=== PATIENT | male | born 1955 | race Caucasian/White ===

== ENCOUNTER 2016-08-31 14:19 | Inpatient (IN) ==
[2016-08-31] MEDS ORDERED: SODIUM CHLORIDE 0.9% 1,000 ML IV STA (15:03)
[2016-08-31] MEDS ORDERED: PANTOPRAZOLE 40 MG VIAL IV STA (15:03)
[2016-08-31] MEDS ORDERED: ONDANSETRON 4 MG/2 ML VIAL IV STA (15:03)
[2016-08-31] MEDS ORDERED: HYDROmorphone 2 MG/1 ML VIAL IV STA (15:03)
[2016-08-31 15:10] LABS: Basophils # 0.1 10*3/uL (0.0-0.2); Basophils % 0.3 % (0.0-0.8); Eosinophils # 0.1 10*3/uL (0.0-0.87); Eosinophils % 0.3 % (0.00-10.9); Hematocrit 49.8 VOL% (42.0-52.0); Hemoglobin 16.6 GM/DL (14.0-18.0); Immature Granulocytes % 0.6 %; Lymphocytes # 0.2 10*3/uL (1.4-4.0); Mean Corpuscular HGB Conc 33.3 GM/DL (32-36); Mean Corpuscular Hemoglobin 29 PG (27-34); Mean Corpuscular Volume 87.2 FL (87-102); Mean Platelet Volume 10.6 FL (9.6-12.0); Monocytes # 1.3 10*3/uL (0.11-0.8); Monocytes % 7.5 % (1.7-12.7); Neutrophils # 15.9 10*3/uL (1.4-7.4); Neutrophils % 90.3 % (38.7-73.9); Platelet Count 411 T/CUMM (130-400); Red Blood Count 5.71 MC/CUMM (3.8-5.5); White Blood Count 17.6 T/CUMM (4-12)
--- NOTE | 2016-08-31 15:25 | CT Report ---
Referring physician: Evin Quarles Exam: CT brain without contrast Date: 08/31/2016 Comparison: None Reason: Headache Technique: Axial images of the head were obtained without the use of contrast. Total DLP was 1225.60 mGy*cm. Findings: No hydrocephalus or midline shift is present. There is no evidence of an acute infarction, recent intracranial hemorrhage or abnormal mass effect. Minimal cerebral atrophy. The osseous structures appear intact. The mastoid air cells are clear. Air-fluid level in the left sphenoid sinus which measures 5 mm in depth. Impression: No acute intracranial abnormality is identified. Minimal atrophy. Minimal left sphenoid sinusitis. The CT exam was performed using one or more of the following dose reduction techniques: Automated exposure control and adjustment of the mA and/or kV according to patient size. PROCEDURE INTERPRETED AT [facility] DEPARTMENT OF RADIOLOGY Final Report Signed by: Dr. Britt Grier
[2016-08-31 15:28] LABS: Lymphocytes 2 % (20-55); Platelet Estimate Adequate; Segmented Neutrophils 91 % (50-85); Total Cells Counted 100
[2016-08-31 15:29] LABS: Poikilocytosis Slight
--- NOTE | 2016-08-31 15:39 | XRay Report ---
XR abdomen 2V Indication: Abdominal pain. Comparison: None. Technique: Flat and erect images of the abdomen were performed. Findings: Lung bases are clear. No organomegaly suggested. The bowel gas pattern demonstrates no specific abnormality. A few air-fluid levels are noted within nondilated air-filled loops of central small bowel. Bony structures as well as soft tissues demonstrate no evidence of significant pathology. Calcified gallstone is suggested within the right upper abdomen. Impression: 1. Nonspecific bowel gas pattern could reflect evidence of enteritis. 2. Calcified gallstone right upper abdomen is suggested. 08/31/2016 3:36 PM PROCEDURE INTERPRETED AT [facility] DEPARTMENT OF RADIOLOGY Final Report Signed by: Dr. Kenneth Whiting
--- NOTE | 2016-08-31 15:39 | XRay Report ---
XR chest 1V portable Indication: Abdominal pain. Comparison: None. Technique: Portable AP chest was performed. Findings: Heart size, mediastinal contour, and hilar structures demonstrate no evidence of acute pathology. Lungs are clear. Bones and soft tissues demonstrate no evidence of acute pathology. Impression: 1. No evidence of acute pathology. 08/31/2016 3:36 PM PROCEDURE INTERPRETED AT [facility] DEPARTMENT OF RADIOLOGY Final Report Signed by: Dr. Kenneth Whiting
[2016-08-31 16:22] LABS: Alanine Aminotransferase 20 U/L (16-61); Alkaline Phosphatase 90 U/L (45-117); Amylase 89 U/L (25-115); Aspartate Amino Transferase 12 U/L (0-37); Blood Urea Nitrogen 16 MG/DL (7-18); Calcium 9.1 MG/DL (8.5-10.1); Glucose 178 MG/DL (74-106); Magnesium 1.9 MG/DL (1.8-2.4); Osmolality,Calculated 281.5 MOS/KG (273-304); Potassium 4.9 MMOL/L (3.5-5.1); Sodium 139 MMOL/L (136-145); Total Protein 8.1 G/DL (6.4-8.3); Troponin I Only < 0.015 NG/ML (0.00-0.045)
--- NOTE | 2016-08-31 16:41 | Emergency Department Note ---
Verito Roche Hilary, am scribing for, and in the presence of, Evin Quarles MD 15:09. Willam Roche Charles R, MD, personally performed the services described in this documentation, ascribed by Lore Sellers in my presence, and it is both accurate and complete 640 . Arrival - Arrival Chief Complaint: Nausea/Vomiting/Diarrhea Stated Complaint: vomiting,diarrhea,diabitic w/ ileostomy J pouch ED Nursing Triage Note: Pt c/o nausea, vomiting, and diarrhea started this am. Mode of Arrival: Ambulatory Limitations: No Limitations Source: Patient, Significant other (), RN Notes Reviewed Time Seen by Provider: 08/31/16 14:33 - History of Present Illness HPI Narrative: Pt is a 60 y/o male presenting to the ED with c/o N/V/D and DONIS which onset this morning. Pt has 8ft total of all intestines due to surgeries. Pt states that he has gone to the bathroom at least 8 times this morning and confirms N/V/D, DONIS, and Abdominal tenderness. Pt has a PMHx of HTN, IDDM, Ulcerative Colitis, and Illiostomy and J Pouch. Onset (ago): hour(s) Allergies/Adverse Reactions: Allergies Allergy/AdvReac Type Severity Reaction Status Date / Time Unable to Obtain Allergy Unverified 08/31/16 14:26 Home Medications: Home Medications Medication Instructions Recorded Confirmed Type Ciprofloxacin Tab [Cipro Tab] 250 mg PO DAILY 08/31/16 08/31/16 History Insulin Glargine [Lantus] 40 unit SUBCUT DAILY 08/31/16 08/31/16 History Mercaptopurine 50 mg PO DAILY 08/31/16 08/31/16 History metroNIDAZOLE TAB [Flagyl Cap/Tab] 500 mg PO DAILY 08/31/16 08/31/16 History Review of System - Review of System 12 point system: reviewed and no additional remarkable complaints except as stated - Review of System Constitutional: Absent: fever Gastrointestinal: Present: abdominal pain, nausea, vomiting, diarrhea Neurological: Present: headache Medical,Surgical,& Family Hx - Medical History Cardio: History of: Hypertension Endocrine: History of: Diabetes Mellitus (IDDM) Gastrointestinal: History of: Ulcerative Colitis - Surgical History Abdominal Surgeries: Surgical HX of: Abdominal Surgery (Illiostomy and J Pouch) - Social History Smoking Status: Never smoker Exam Vital Signs: Vital Signs Temperature 97.3 F L 08/31/16 14:20 Pulse Rate 118 H 08/31/16 14:20 Respiratory Rate 20 08/31/16 14:20 Blood Pressure 83/61 08/31/16 14:20 O2 Sat by Pulse Oximetry 96 08/31/16 14:20 - General General appearance: alert, in no apparent distress, other (Sickly looking) - Head Head exam: Present: atraumatic, normocephalic - Eye Eye exam: Present: normal appearance, PERRL, EOMI - ENT ENT exam: Present: mucous membranes dry, TM's normal bilaterally - Neck Neck exam: Present: full ROM, trachea midline. Absent: tenderness - Chest Chest inspection: Present: symmetric chest wall rise. Absent: tenderness - Respiratory Respiratory exam: Present: normal lung sounds bilaterally - Cardiovascular Cardiovascular exam: Present: normal rhythm, tachycardia - Abdominal Exam Abdominal exam: Present: distention, tenderness (abdominal area), hyperactive bowel sounds - Extremities Exam Extremities exam: Present: full ROM. Absent: tenderness - Back Exam Back exam: Present: full ROM. Absent: tenderness - Neurological Exam Neurological exam: Present: alert, oriented X3, CN II-XII intact. Absent: motor sensory deficit - Psychiatric Psychiatric exam: Present: normal affect, normal mood - Skin Skin exam: Present: warm, dry, intact, pallor Course - Consultations Consultation #1: Dr. Barrera will admit patient Time: 17:29 Results - Labs CBC & BMP: 08/31/16 14:50 08/31/16 15:45 Lab Results: I have reviewed the patients labs Labs: Laboratory Tests 08/31/16 14:48 POC Glucose 195 H Laboratory Tests 08/31/16 14:50 WBC 17.6 H RBC 5.71 H Plt Count 411 H Neut % (Auto) 90.3 H Lymph % (Auto) 1.0 L Neut # (Auto) 15.9 H Lymph # (Auto) 0.2 L Dunn # (Auto) 1.3 H Laboratory Tests 08/31/16 15:45 Creatinine 1.80 H Glucose 178 H Total Bilirubin 2.60 H Globulin 4.1 H Albumin/Globulin Ratio 0.9 L - Diagnostic Findings Procedure: Abdominal x-ray: report reviewed by me (1. Nonspecific bowel gas pattern could reflect evidence of enteritis. 2. Calcified gallstone right upper abdomen is suggested. ), Chest x-ray: report reviewed by me (1. No evidence of acute pathology.), CT: report reviewed by me (Head: No acute intracranial abnormality is identified. Minimal atrophy. Minimal left sphenoid sinusitis.), Ultrasound: report reviewed by me (Gallbladder: Cholelithiasis. Large gallstone in the neck of gallbladder. The wall of the gallbladder appears to be borderline in thickness. CBD is borderline in size measuring 6.2 mm. Biliary scan with ejection fraction may be helpful for further evaluation. Pancreas and aorta are obscured by bowel gas.) Critical Care Time Critical Care Time: Yes Total Critical Care Time: 60 Disposition Clinical Impression: Gastroenteritis, Dehydration, Sepsis, Cholelithiasis, Abdominal pain, Leukocytosis, Hypotension Case discussed with: patient, patient's family Disposition: Still a Patient Condition: Guarded Time of Disposition: 17:31
--- NOTE | 2016-08-31 16:48 | Ultrasound Report ---
Exam: US gallbladder Date: 08/31/2016 4:06 PM Comparison: None Indication: Nausea, vomiting, diarrhea Technique:[Multiple transabdominal real-time scans were obtained of the right upper quadrant. Color flow scans obtained. Ultrasound images were captured and stored.] Findings: 19 mm gallstone in the neck of the gallbladder. The wall of the gallbladder measures 2.9 mm. CBD measures 6.2 mm. The liver is normal in size with no masses. Right kidney measures 2 mm length with no masses or hydronephrosis. The pancreas, aorta including the aortic bifurcation, and IVC are obscured by bowel gas. Color flow documented in the IVC. Impression: Cholelithiasis. Large gallstone in the neck of gallbladder. The wall of the gallbladder appears to be borderline in thickness. CBD is borderline in size measuring 6.2 mm. Biliary scan with ejection fraction may be helpful for further evaluation. Pancreas and aorta are obscured by bowel gas. PROCEDURE INTERPRETED AT [facility] DEPARTMENT OF RADIOLOGY Final Report Signed by: Dr. Britt Grier
--- NOTE | 2016-08-31 17:02 | EKG Report ---
Stationary ECG Study [facility] ER Test Date: 08/31/2016 5:01:20 PM Pat Name: EMILY BUNDY Department: Room: Gender: M Java Developer Architect: : [id number] Requested by: Evin Neil Order Number: [id number] Reading MD: ANEL MONTILLA Intervals Salley Rate: 103 P: 70 RI: 169 QRS: 106 QRSD: 109 T: 29 QT: 337 QTc: 397 Interpretive Statements SINUS TACHYCARDIA MARKED RIGHT AXIS DEVIATION POSSIBLE INFERIOR MYOCARDIAL INFARCTION, PROBABLY OLD Electronically Signed On 09-06-16 07:45:35 CDT by ANEL MONTILLA [email or web address]
[2016-08-31] MEDS ORDERED: SODIUM CHLORIDE 0.9% 500 ML IV STA (17:10)
[2016-08-31] MEDS ORDERED: PANTOPRAZOLE 40 MG VIAL IV ONE (17:11)
[2016-08-31] MEDS ORDERED: ONDANSETRON 4 MG/2 ML VIAL ONE (17:11)
[2016-08-31] MEDS ORDERED: HYDROmorphone 2 MG/1 ML VIAL ONE (17:12)
[2016-08-31] MEDS ORDERED: GLUCAGON 1 MG VIAL IM PRN (18:03)
[2016-08-31] MEDS ORDERED: DEXTROSE 50% 25 GM/50 ML VIAL IV PRN (18:03)
[2016-08-31] MEDS ORDERED: CIPROFLOXACIN INJ 400 MG in PREMIX 1 EACH IV SCH (18:03)
[2016-08-31] MEDS ORDERED: HYDROmorphone 2 MG/1 ML VIAL IV PRN (18:03)
[2016-08-31] MEDS ORDERED: metroNIDAZOLE INJ 500 MG in PREMIX 1 EACH IV SCH (18:03)
[2016-08-31] MEDS ORDERED: SODIUM CHLORIDE 0.9% 1,000 ML IV SCH (18:03)
[2016-08-31] MEDS ORDERED: PIPERACILLIN/TAZOBACTAM 3,375 MG in SODIUM CHLORIDE 0.9% 100 ML IV SCH (18:03)
[2016-08-31] MEDS ORDERED: ACETAMINOPHEN 325 MG TABLET PO PRN ×2 (18:03→18:19)
[2016-08-31] MEDS ORDERED: ONDANSETRON 4 MG/2 ML VIAL IV PRN ×2 (18:03→18:19)
--- NOTE | 2016-08-31 18:13 | General Surg History&Physical ---
Assessment and Plan (1) Cholelithiasis Status: Acute Assessment and plan: This patient has cholelithiasis and he appears to have a component of cholecystitis with elevated white count and focal tenderness in the right upper quadrant. He also has a slightly prominent bile duct and his bilirubin is elevated. I have discussed his care with Dr. Arambula who agreed to see him here and I think the best course of action would be to aggressively resuscitate him overnight in the intensive care unit prior to any procedures to make these procedures more safe. He is still volume depleted and he needs to be resuscitated prior to any of these sort of procedures. He will be placed on IV antibiotics Zosyn and Flagyl and admitted to the ICU with an additional liter of lactated Ringer's tonight and he will be placed at a rate of 175 cc an hour overnight. If we cannot get good control surely he will need to have a Roblero catheter placed as well. I have asked Dr. Arambula to see him for an ERCP due to his elevated bilirubin and prominent bile duct prior to cholecystectomy. I believe his acute presentation is most likely secondary to his cholecystitis that developing but is certainly a component of pouchitis and enteritis is also possible and will get Dr. Arambula to see about any further recommendations regarding this as well. We will plan for interval cholecystectomy after ERCP is done and watch him closely in ICU overnight. I did offer to transfer the patient to [facility] but the patient and his sister prefer to receive this care here if possible and I think we can comfortably handle his gallbladder here at this institution. Current Visit: Yes History of Present Illness Chief complaint: Abdominal pain with nausea, vomiting, and diarrhea History of present illness: Mr. Olivarez is a 60 year old male with a history of ulcerative colitis who underwent a total abdominal colectomy with J-pouch ilio anal anastomosis and diverting loop ileostomy followed by ileostomy closure in the year 1999 at [facility] who is presenting to the ER today with acute onset of abdominal pain mostly focused in the right upper quadrant with nausea and vomiting and diarrhea today. The patient has a history of chronic pouchitis and he takes ciprofloxacin, Flagyl, and mercaptopurine daily. He has been on this regimen for many years now. He is followed by Dr. Saavedra at [facility] and Dr. blankenship sees him here in [place] for any local issues he has. He was recently in contact with his sister who developed a gastrointestinal bug over the weekend and he thought this was passed on to him. He has no fevers at home. He was evaluated in the ER with lab work to reveal leukocytosis of 17,600. His creatinine had bumped to 1.8. His bilirubin was 2.6. His other LFTs were normal and his lipase was normal. Abdominal x-ray showed nonspecific bowel gas pattern. Ultrasound of the right upper quadrant showed borderline gallbladder wall thickening with a 2 cm stone lodged in the neck of the gallbladder that was immobile. There was a bile duct size of 6.2 mm. Home Medications Medication Instructions Recorded Confirmed Type Ciprofloxacin Tab [Cipro Tab] 250 mg PO DAILY 08/31/16 08/31/16 History Insulin Glargine [Lantus] 40 unit SUBCUT DAILY 08/31/16 08/31/16 History Mercaptopurine 50 mg PO DAILY 08/31/16 08/31/16 History metroNIDAZOLE TAB [Flagyl Cap/Tab] 500 mg PO DAILY 08/31/16 08/31/16 History Allergies Allergy/AdvReac Type Severity Reaction Status Date / Time levofloxacin [From Levaquin] Allergy ANAPHYLAXIS Verified 08/31/16 17:50 Medical,Surgical,& Family Hx - Medical History Cardio: History of: Hypertension Endocrine: History of: Diabetes Mellitus (IDDM) Gastrointestinal: History of: Ulcerative Colitis - Surgical History Abdominal Surgeries: Surgical HX of: Abdominal Surgery (Illiostomy and J Pouch) - Social History Smoking Status: Never smoker Exam - Constitutional General appearance: no acute distress, over weight - Head Head exam: Present: normal inspection, normocephalic - Eye Eye exam: Present: EOMI. Absent: scleral icterus Pupils: Present: KITTY - ENT ENT exam: Present: normal exam Mouth exam: Present: normal external inspection, normal voice - Neck Neck exam: Present: normal inspection, trachea midline - Respiratory Respiratory exam: Present: clear to auscultation bilaterally. Absent: accessory muscle use, chest wall tenderness - Cardiovascular Cardiovascular exam: Present: RRR. Absent: systolic murmur, tachycardia - GI/Abdominal GI/Abdominal exam: Present: normal bowel sounds, tenderness, soft. Absent: firm , guarding, Rubio's sign, organomegaly, rebound - Extremities Exam Extremities exam: Present: normal inspection, normal capillary refill - Back Exam Back exam: Present: normal inspection - Neurological Exam Neurological exam: Present: alert, oriented X3 Speech: Present: normal - Skin Skin exam: Present: normal color, warm - Constitutional Constitutional: Present: as per HPI - EENT Nose, mouth and throat: Present: as per HPI - Cardiovascular Cardiovascular: Present: as per HPI - Respiratory Respiratory: Present: as per HPI - Gastrointestinal Gastrointestinal: Present: as per HPI - Genitourinary Genitourinary: Present: as per HPI - Musculoskeletal Musculoskeletal: Present: as per HPI - Neurological Neurological: Present: as per HPI - Endocrine Endocrine: Present: as per HPI Hematologic/Lymphatic: Present: as per HPI Results - Labs CBC & BMP: 08/31/16 14:50 08/31/16 15:45 - Diagnostic Findings Procedure: KUB x-ray: report reviewed by me, image reviewed by me (Enteritis), Ultrasound: image reviewed by me, report reviewed by me (There is a 2 cm stone in the neck of the gallbladder that is immobile and there is some borderline wall thickening in the gallbladder.)
[2016-08-31 18:19] LABS: Apearance,Urine CLOUDY (Clear); Bacteria,Urine Few /HPF (Few); Bilirubin,Urine Negative (Negative); Blood, Urine Negative (Negative); Glucose,Urine (UA) 50 mg/dL (Negative); Hyaline Casts,Urine 118 /LPF (0-3); Ketones,Urine 5 mg/dL (Negative); Mucus,Urine Many /LPF (Occasional); Nitrite,Urine Negative (Negative); Protein,Urine >=500 MG/DL; RBC,Urine 5 /HPF (0-4); Squamous Epithelial Cell,Urine Occasional /HPF (0-10); Urine Color Amber (Yellow); Urine Specific Gravity 1.024 (1.001-1.035); Urine Urobilinogen < 2.0 EU/DL (0.2-1.0); WBC,Urine 9 /HPF (0-6)
[2016-08-31] MEDS ORDERED: LACTATED RINGERS 1,000 ML IV ONE (18:19)
[2016-08-31] MEDS ORDERED: PROMETHAZINE 25 MG/1 ML VIAL IM PRN (18:19)
[2016-08-31] MEDS ORDERED: PIPERACILLIN/TAZOBACTAM 3,375 MG in SODIUM CHLORIDE 0.9% 100 ML IV ONE (18:19)
[2016-08-31] MEDS: PIPERACILLIN/TAZOBACTAM 3,375 MG in SODIUM CHLORIDE 0.9% 100 ML IV SCH (20:11)
[2016-08-31] MEDS: LACTATED RINGERS 1,000 ML IV SCH (20:56)
[2016-08-31] MEDS ORDERED: INSULIN REGULAR 100 UNIT/ML SUBCUT SCH (21:00)
[2016-08-31] MEDS: HYDROmorphone 2 MG/1 ML VIAL IV PRN (22:20)
[2016-09-01] MEDS: metroNIDAZOLE INJ 500 MG in PREMIX 1 EACH IV SCH ×3 (00:24→16:09)
[2016-09-01] MEDS: LACTATED RINGERS 1,000 ML IV SCH ×4 (02:01→20:07)
[2016-09-01] MEDS: PIPERACILLIN/TAZOBACTAM 3,375 MG in SODIUM CHLORIDE 0.9% 100 ML IV SCH ×3 (04:41→20:09)
[2016-09-01 04:47] LABS: Basophils % 0.5 % (0.0-0.8); Eosinophils # 0.1 10*3/uL (0.0-0.87); Eosinophils % 0.8 % (0.00-10.9); Hematocrit 39.9 VOL% (42.0-52.0); Hemoglobin 13.3 GM/DL (14.0-18.0); Immature Granulocytes % 0.4 %; Immature Granulocytes Absolute 0.03 #; Lymphocytes # 0.3 10*3/uL (1.4-4.0); Lymphocytes % 3.7 % (21.2-54.2); Mean Corpuscular HGB Conc 33.3 GM/DL (32-36); Mean Corpuscular Hemoglobin 29 PG (27-34); Mean Corpuscular Volume 86.6 FL (87-102); Mean Platelet Volume 10.1 FL (9.6-12.0); Monocytes # 0.9 10*3/uL (0.11-0.8); Monocytes % 11.9 % (1.7-12.7); Neutrophils # 6.5 10*3/uL (1.4-7.4); Neutrophils % 82.7 % (38.7-73.9); Platelet Count 289 T/CUMM (130-400); Red Blood Count 4.61 MC/CUMM (3.8-5.5); White Blood Count 7.8 T/CUMM (4-12)
[2016-09-01 05:12] LABS: Bilirubin,Direct 0.4 MG/DL (0.0-0.20)
[2016-09-01 05:13] LABS: Eosinophils 1 % (0-10); Hypochromasia 1+; Lymphocytes 4 % (20-55); Segmented Neutrophils 85 % (50-85); Total Cells Counted 100
[2016-09-01 05:14] LABS: Microcytosis 1+; Platelet Estimate Adequate
[2016-09-01 06:10] LABS: Albumin 3.2 G/DL (3.4-5.0); Bilirubin,Total 2.5 MG/DL (0.2-1.0); Calcium 7.9 MG/DL (8.5-10.1); Magnesium 1.7 MG/DL (1.8-2.4); Osmolality,Calculated 277.8 MOS/KG (273-304); Potassium 4.4 MMOL/L (3.5-5.1); Total Protein 6.6 G/DL (6.4-8.3)
[2016-09-01] MEDS ORDERED: LACTATED RINGERS 1,000 ML IV ONE (07:08)
--- NOTE | 2016-09-01 07:33 | General Surgery Progress Note ---
Assessment and Plan (1) Cholelithiasis Status: Acute Assessment and plan: The patient needs continued resuscitation. He will be given an additional liter now we will continue to check bladder scans. His creatinine has gone up slightly but I think his resuscitation is nearing its completion based on his vital signs. I have discussed his care with Dr. Arambula who agreed to see him during his hospitalization and perform ERCP prior to his operation. He will continue antibiotics in the meantime we get a pharmacy consult for dosing. Current Visit: Yes Subjective Patient reports: Present: no new complaints, feels better, still having pain, pain is less, afebrile Narrative: The patient had decreased urine output overnight. His pain is much better. Exam - Constitutional Vitals: Period Temp Pulse Resp BP Sys/Jackson Pulse Ox Last 24 Hr 97.7 F-99.1 F 71-101 12-27 99-129/45-77 91-100 General appearance: no acute distress, over weight - Head Head exam: Present: normal inspection, normocephalic - Eye Eye exam: Present: EOMI Pupils: Present: KITTY - ENT ENT exam: Present: normal exam Mouth exam: Present: normal external inspection, normal voice - Neck Neck exam: Present: normal inspection, trachea midline - Respiratory Respiratory exam: Present: clear to auscultation bilaterally. Absent: accessory muscle use, chest wall tenderness - Cardiovascular Cardiovascular exam: Present: RRR. Absent: systolic murmur, tachycardia - GI/Abdominal GI/Abdominal exam: Present: normal bowel sounds, soft. Absent: tenderness, rebound - Extremities Exam Extremities exam: Present: normal inspection, normal capillary refill - Back Exam Back exam: Present: normal inspection - Neurological Exam Neurological exam: Present: alert, oriented X3 Speech: Present: normal - Skin Skin exam: Present: normal color, warm Results - Labs CBC & BMP: 09/01/16 04:35 09/01/16 04:35 - Diagnostic Findings Procedure: KUB x-ray: image reviewed by me, report reviewed by me (Improved bowel gas pattern)
--- NOTE | 2016-09-01 07:36 | XRay Report ---
XR abdomen 1V Indication: Abdominal pain Comparison: 31 August 2016 Findings: No free fluid or free air seen. The calculus overlying the right upper quadrant was not identified on today's exam although the upper portions of the abdomen were not imaged. There is improvement of the bowel gas pattern. No abnormal calcifications are present. No other abnormality is identified. Impression: Calculus on previous exam not seen on the current study. The upper portion of the abdomen was not imaged and may be off the edge of the film. Improvement of the bowel gas pattern compared to previous. PROCEDURE INTERPRETED AT [facility] DEPARTMENT OF RADIOLOGY Final Report Signed by: Dr. Jose J Carbone
[2016-09-01] MEDS ORDERED: MERCAPTOPURINE 50 MG TABLET PO SCH (09:00)
[2016-09-01] MEDS ORDERED: PANTOPRAZOLE 40 MG VIAL IV SCH (09:00)
[2016-09-01] MEDS ORDERED: INSULIN GLARGINE 100 UNIT/ML SUBCUT SCH (09:00)
[2016-09-01] MEDS: PANTOPRAZOLE 40 MG TABLET PO SCH (09:18)
--- NOTE | 2016-09-01 12:14 | Gastrointestinal Consult Note ---
Assessment and Plan (1) Abdominal pain Status: Acute Assessment and plan: 09/01-sudden onset of diffuse abdominal pain with intractable nausea and vomiting now resolved at present time. Ultrasound findings noted of cholelithiasis and gallstone in the neck of the gallbladder. LFTs unremarkable other than bilirubin at 2.5. Plan for tentative ERCP on tomorrow to further evaluate. Plan an addendum to followed by Dr. Arambula Current Visit: Yes History of Present Illness Chief complaint: Nausea, vomiting, abdominal pain History of present illness: Mr. Olivarez is a 60 year old male who was admitted to the hospital with a sudden onset of abdominal pain associated with nausea, vomiting and diarrhea. Patient states that he was in his usual state of health until yesterday morning when he woke up with severe generalized abdominal pain and cramping. This was shortly followed by an onset of intractable nausea and vomiting as well as increased output from his ileostomy. Patient has a prior history of total abdominal colectomy with a J-pouch ileoanal anastomosis and diverting loop ileostomy in 2007 [facility] for history of ulcerative colitis. He is followed at [facility] by Dr. Saavedra and seen intermittently by Dr. Arambula. He takes Cipro, Flagyl and mercaptopurine daily for history of chronic pouchitis and has done so for many years. Patient states that over the weekend his had a stomach bug that lasted several days. He he states that initially when his symptoms began he felt like he had contracted the same virus she had had a few days before. He denies any fever or chills associated with this. States his abdominal pain was generalized throughout his entire abdomen and not isolated to any certain area. He presented to the ER for further evaluation at that time. On admission he was found to have leukocytosis with WBCs at 17,000. His transaminases were unremarkable however bilirubin elevated at 2.6. Lipase is 191. Gallbladder ultrasound showed cholelithiasis with a large gallstone in the neck of the gallbladder and borderline thickness. Common bile duct measuring 6.2 mm. Currently his pain is well controlled and nausea and vomiting has subsided. Home Medications Medication Instructions Recorded Confirmed Type Ciprofloxacin Tab [Cipro Tab] 250 mg PO DAILY 08/31/16 08/31/16 History Insulin Glargine [Lantus] 40 unit SUBCUT DAILY 08/31/16 08/31/16 History Mercaptopurine 50 mg PO DAILY 08/31/16 08/31/16 History metroNIDAZOLE TAB [Flagyl Cap/Tab] 500 mg PO DAILY 08/31/16 08/31/16 History Allergies Allergy/AdvReac Type Severity Reaction Status Date / Time levofloxacin [From Levaquin] Allergy ANAPHYLAXIS Verified 08/31/16 17:50 codeine AdvReac Mild ITCHING Verified 08/31/16 18:35 Medical,Surgical,& Family Hx - Medical History Cardio: History of: Hypertension Endocrine: History of: Diabetes Mellitus (IDDM) Gastrointestinal: History of: Ulcerative Colitis Musculoskeletal: No history of: Amputation - Surgical History Abdominal Surgeries: Surgical HX of: Abdominal Surgery (Illiostomy and J Pouch) , Colonoscopy Reproductive Surgeries: Patient denies;: Genitourinary Surgery - Social History Smoking Status: Never smoker Frequency of Alcohol Use: None Type of Drug Use: None 12 point system: reviewed and no additional remarkable complaints except as stated - Constitutional Constitutional: Present: as per HPI - EENT Eyes: Present: as per HPI Ears: Present: as per HPI Nose, mouth and throat: Present: as per HPI - Cardiovascular Cardiovascular: Present: as per HPI - Respiratory Respiratory: Present: as per HPI - Gastrointestinal Gastrointestinal: Present: as per HPI, abdominal pain, diarrhea, nausea, vomiting - Genitourinary Genitourinary: Present: as per HPI - Musculoskeletal Musculoskeletal: Present: as per HPI - Neurological Neurological: Present: as per HPI - Psychiatric Psychiatric: Present: as per HPI - Endocrine Endocrine: Present: as per HPI - Hematologic/Lymphatic Hematologic/Lymphatic: Present: as per HPI Exam - Constitutional Vitals: Period Temp Pulse Resp BP Sys/Jackson Pulse Ox Last 24 Hr 97.7 F-99.1 F 71-101 12-27 95-129/45-81 91-100 General appearance: no acute distress, over weight - Head Head exam: Present: normal inspection, normocephalic - Eye Eye exam: Present: other (Lids and conjunctive are unremarkable). Absent: scleral icterus - ENT ENT exam: Present: normal exam, normal oropharynx - Neck Neck exam: Present: normal inspection - Respiratory Respiratory exam: Present: clear to auscultation bilaterally. Absent: rales, rhonchi, wheezes - Cardiovascular Cardiovascular exam: Present: regular rate and rhythm. Absent: diastolic murmur , JVD, systolic murmur - GI/Abdominal GI/Abdominal exam: Present: normal bowel sounds, soft. Absent: ascites, distended, mass, organomegaly, tenderness - Extremities Exam Extremities exam: Present: normal inspection, full ROM - Back Exam Back exam: Present: normal inspection - Neurological Exam Neurological exam: Present: alert, oriented X3 - Psychiatric Psychiatric exam: Present: normal affect, normal mood - Skin Skin exam: Present: normal color, warm, dry Results - Labs CBC & BMP: 09/01/16 04:35 09/01/16 04:35 Lab Results: I have reviewed the past 24 hour labs
[2016-09-01] MEDS ORDERED: DEXTROSE 50% 25 GM/50 ML VIAL IV PRN (16:08)
[2016-09-01] MEDS ORDERED: GLUCAGON 1 MG VIAL IM PRN (16:08)
[2016-09-01] MEDS: INSULIN REGULAR 100 UNIT/ML SUBCUT SCH ×2 (16:50→21:49)
[2016-09-01] MEDS: HYDROmorphone 2 MG/1 ML VIAL IV PRN (21:57)
[2016-09-02] MEDS: metroNIDAZOLE INJ 500 MG in PREMIX 1 EACH IV SCH ×3 (00:10→18:23)
[2016-09-02] MEDS: PIPERACILLIN/TAZOBACTAM 3,375 MG in SODIUM CHLORIDE 0.9% 100 ML IV SCH ×3 (03:59→20:16)
[2016-09-02] MEDS: LACTATED RINGERS 1,000 ML IV SCH ×2 (04:03→14:21)
[2016-09-02 05:57] LABS: Basophils % 0.7 % (0.0-0.8); Eosinophils # 0.2 10*3/uL (0.0-0.87); Eosinophils % 3.1 % (0.00-10.9); Hemoglobin 12.2 GM/DL (14.0-18.0); Immature Granulocytes % 0.4 %; Immature Granulocytes Absolute 0.02 #; Lymphocytes # 0.5 10*3/uL (1.4-4.0); Lymphocytes % 8.1 % (21.2-54.2); Mean Corpuscular Hemoglobin 29 PG (27-34); Mean Corpuscular Volume 87.7 FL (87-102); Mean Platelet Volume 10.3 FL (9.6-12.0); Neutrophils # 3.9 10*3/uL (1.4-7.4); Neutrophils % 69.7 % (38.7-73.9); Platelet Count 259 T/CUMM (130-400); Red Blood Count 4.22 MC/CUMM (3.8-5.5); Red Cell Distribution Width 15.7 % (9.3-17.3); White Blood Count 5.6 T/CUMM (4-12)
[2016-09-02 06:04] LABS: PT Patient Result 10.9 SECS
[2016-09-02 06:11] LABS: Band Neutrophils 1 % (0-10); Eosinophils 1 % (0-10); Hypochromasia Slight; Lymphocytes 9 % (20-55); Myelocytes 1 %; Platelet Estimate Adequate; Segmented Neutrophils 73 % (50-85); Total Cells Counted 100
[2016-09-02 06:12] LABS: Albumin 3.1 G/DL (3.4-5.0); Bilirubin,Total 1.7 MG/DL (0.2-1.0); Calcium 8.3 MG/DL (8.5-10.1); Osmolality,Calculated 276.5 MOS/KG (273-304); Potassium 3.8 MMOL/L (3.5-5.1); Total Protein 5.9 G/DL (6.4-8.3)
[2016-09-02] MEDS: INSULIN REGULAR 100 UNIT/ML SUBCUT SCH ×4 (07:57→21:58)
--- NOTE | 2016-09-02 08:22 | General Surgery Progress Note ---
Assessment and Plan (1) Cholelithiasis Status: Acute Assessment and plan: The patient's bilirubin is down to 1.7 today. He is apparently on scheduled for ERCP today. We will schedule him for laparoscopic cholecystectomy tomorrow pending but the ERCP goes okay today. Current Visit: Yes Subjective Patient reports: Present: no new complaints, feels better, still having pain, pain is less, afebrile Exam - Constitutional Vitals: Period Temp Pulse Resp BP Sys/Jackson Pulse Ox Last 24 Hr 97.5 F-99.4 F 66-81 14-20 107-149/51-88 93-98 General appearance: no acute distress, over weight - Head Head exam: Present: normal inspection, normocephalic - Eye Eye exam: Absent: scleral icterus - ENT Mouth exam: Present: normal external inspection, normal voice - Neck Neck exam: Present: trachea midline - Respiratory Respiratory exam: Absent: accessory muscle use, prolonged expiratory phase - Cardiovascular Cardiovascular exam: Absent: tachycardia - Neurological Exam Neurological exam: Present: alert, oriented X3 Speech: Present: normal Results - Labs CBC & BMP: 09/02/16 05:18 09/02/16 05:18
[2016-09-02] MEDS: PANTOPRAZOLE 40 MG TABLET PO SCH (09:12)
[2016-09-02] MEDS ORDERED: LIDOCAINE 2% 5 ML VIAL ONE (12:00)
[2016-09-02] MEDS ORDERED: PROPOFOL 200 MG/20 ML VIAL IV ONE (12:00)
--- NOTE | 2016-09-02 12:11 | History and Physical Update ---
History and Physical Update - History and Physical H&P was reviewed, the patient examined and there: are no changes in the patients condition since last H&P was completed. - Physical Exam Mental Status: alert and oriented Heart: regular rate and rhythm Lung: clear to auscultation Abdomen: other (Upper abdominal tenderness) Vitals: within normal limits
[2016-09-02] MEDS ORDERED: GLUCAGON 1 MG VIAL ONE (12:29)
--- NOTE | 2016-09-02 12:54 | Operative Note ---
Date of procedure: 09/02/16 Pre-op diagnosis: Symptomatic gallstones, dilated common bile duct on ultrasound Procedure: Procedure: Endoscopic retrograde cholangiopancreatography Brief clinical abstract: Patient is a 60-year-old male admitted with recent recurrent symptomatic biliary pain episodes. He is noted to have cholelithiasis. On ultrasound his common bile duct is mildly dilated and he has had total bilirubin ranging between 1.7 and 2.5. Transaminases have been normal. Procedure findings: After informed consent was obtained, patient was placed in the prone position. Therapeutic video duodenoscope was inserted into the upper soft in blind fashion with no resistance encountered. Esophageal mucosa appeared normal. Stomach was examined including retroflexed view of the cardia and fundus with no abnormality seen. The pyloric channel, duodenal bulb, second and third portion of the duodenum including the appearance of the major papilla were normal. Sphincterotome was used and initially pancreatogram obtained. Head, neck, body, and tail of the pancreatic duct were opacified and notable for mildly ectatic pancreatic duct to maximal 4 mm diameter but no stricture or filling defects were seen. The endoscope was repositioned. Cholangiogram was obtained filling the mid and distal common bile duct with no filling defects seen. Common bile duct was mildly dilated to approximately 7 mm diameter. The distal bile duct was fairly tortuous and I could not cannulate deeply. 0.035 inch guidewire was advanced through the sphincterotome and I was still unable to deeply cannulate the duct. Contrast was reinjected through the sphincterotome and a submucosal injection occurred. Thereafter, I could never opacify the common bile duct. I did attempt a needle knife sphincterotomy from the ampullary opening in the biliary axis up approximately 1 cm however when attempts to inject contrast were made the submucosal injection enlarged. I elected to discontinue the procedure at this point. He appeared to tolerate the procedure well. Impression: #1 normal EGD #2 mildly ectatic pancreatic duct with no obstructive findings #3 mild common bile duct dilation with no filling defects seen, although biliary tree was underfilled Recommendations: Proceed with cholecystectomy and, if possible cholangiogram Anesthesia: MAC Surgeon / Physician: Farhat Arambula Estimated blood loss: minimal Specimens: none sent Condition: stable Disposition: post procedure unit Results - Labs CBC & BMP: 09/02/16 05:18 09/02/16 05:18 Discharge Plan - Discharge Medications No Action metroNIDAZOLE TAB [Flagyl Cap/Tab] 500 mg PO DAILY Mercaptopurine 50 mg PO DAILY Insulin Glargine [Lantus] 40 unit SUBCUT DAILY Ciprofloxacin Tab [Cipro Tab] 250 mg PO DAILY - Follow Up or Referral - Forms/Instructions
--- NOTE | 2016-09-02 13:10 | Anesthesia Post-Op ---
Anesthesia Post OP - Post Ansesthetic Evaluation Patient seen in post op: Yes Resp: within normal limits CV: within normal limits Mental: within normal limits Temp: within normal limits [id number]-[id number]-[id number]: within normal limits Nausea and Vomiting: within normal limits Pain: within normal limits
--- NOTE | 2016-09-02 13:46 | Fluoroscopy Report ---
Exam: FL ERCP w sphincterotomy Date: 09/02/2016 12:15 PM Comparison: Gallbladder ultrasound 08/31/2016 Indication: Gallstones, abdomen pain Technique:[Fluoroscopy time 6.51 minutes documented. 12 films were obtained after injection 25 cc of contrast by Dr. Joaquim Arambula.] Findings: Contrast injected into the main pancreatic duct. The duct is minimally dilated with no obstructing calculus or other pathology. Minimal contrast injected into the common bile duct which appears minimally dilated. No conclusive stones are identified in the visualized CBD. Limited evaluation of the duct with sphincterotomy performed. Submucosal injection noted. Impression: Minimal dilatation of the pancreatic duct. Minimal dilatation of the visualized common bile duct. Limited evaluation of the duct as above noted. PROCEDURE INTERPRETED AT [facility] ([facility]) DEPARTMENT OF RADIOLOGY Final Report Signed by: Dr. Britt Grier
[2016-09-02] MEDS: HYDROmorphone 2 MG/1 ML VIAL IV PRN (20:13)
[2016-09-03] MEDS: metroNIDAZOLE INJ 500 MG in PREMIX 1 EACH IV SCH ×2 (00:16→08:35)
[2016-09-03] MEDS: LACTATED RINGERS 1,000 ML IV SCH ×4 (00:18→16:12)
[2016-09-03] MEDS: PIPERACILLIN/TAZOBACTAM 3,375 MG in SODIUM CHLORIDE 0.9% 100 ML IV SCH ×2 (04:12→16:12)
--- NOTE | 2016-09-03 07:56 | Gastrointestinal Progress Note ---
Assessment and Plan (1) Abdominal pain Status: Acute Assessment and plan: 09/03-post ERCP with findings noted. For lap cholecystectomy today. Plan an addendum to follow by Dr. Arambula. 09/01-sudden onset of diffuse abdominal pain with intractable nausea and vomiting now resolved at present time. Ultrasound findings noted of cholelithiasis and gallstone in the neck of the gallbladder. LFTs unremarkable other than bilirubin at 2.5. Plan for tentative ERCP on tomorrow to further evaluate. Plan an addendum to followed by Dr. Arambula Current Visit: Yes Gastroenterology - PN: Subj Interval history: CC: Gallstones Patient is seen awake and alert lying in bed with at side. States that he is feeling a little better today. Denies any abdominal pain at present time. Denies nausea vomiting. He is post ERCP on yesterday with findings of mildly ectatic pancreatic duct with no obstructive findings as well as mild common bile duct dilation with no filling defects. He is for laparoscopic cholecystectomy today. Abdomen is soft, nontender. ROS: Denies shortness of breath or chest pain Exam (Progress Note) - Constitutional Vitals: Period Temp Pulse Resp BP Sys/Jackson Pulse Ox Last 24 Hr 97.8 F-98.9 F 53-77 14-20 114-155/61-81 96-100 - Other Additional findings: General appearance: no acute distress, over weight - Head Head exam: Present: normal inspection, normocephalic - Eye Eye exam: Present: other (Lids and conjunctive are unremarkable). Absent: scleral icterus - ENT ENT exam: Present: normal exam, normal oropharynx - Neck Neck exam: Present: normal inspection - Respiratory Respiratory exam: Present: clear to auscultation bilaterally. Absent: rales, rhonchi, wheezes - Cardiovascular Cardiovascular exam: Present: regular rate and rhythm. Absent: diastolic murmur , JVD, systolic murmur - GI/Abdominal GI/Abdominal exam: Present: normal bowel sounds, soft. Absent: ascites, distended, mass, organomegaly, tenderness - Extremities Exam Extremities exam: Present: normal inspection, full ROM - Back Exam Back exam: Present: normal inspection - Neurological Exam Neurological exam: Present: alert, oriented X3 - Psychiatric Psychiatric exam: Present: normal affect, normal mood - Skin Skin exam: Present: normal color, warm, dry Results - Labs CBC & BMP: 09/02/16 05:18 09/02/16 05:18 Lab Results: I have reviewed the past 24 hour labs
[2016-09-03] MEDS: INSULIN REGULAR 100 UNIT/ML SUBCUT SCH ×3 (08:42→17:35)
[2016-09-03] MEDS: PANTOPRAZOLE 40 MG TABLET PO SCH (08:43)
[2016-09-03] MEDS ORDERED: BUPIVACAINE MPF 0.25% /EPI 30 ML VIAL ONE (10:46)
[2016-09-03] MEDS ORDERED: TISSUE ADHESIVE 1 EACH APPLICATOR TOP ONE (10:46)
[2016-09-03] MEDS ORDERED: LIDOCAINE 1%/EPI INJ 20 ML VIAL ONE (10:47)
--- NOTE | 2016-09-03 11:00 | General Surgery Progress Note ---
Assessment and Plan (1) Cholelithiasis Status: Acute Assessment and plan: I have recommended laparoscopic cholecystectomy with cholangiogram today. If cholangiogram was not obtainable I have discussed this with Dr. Arambula and we will just follow his LFTs postop. If we get a cholangiogram and there is a stone in his common duct and I will leave a drain into the Dr. Ralf continue this to perform a rendezvous procedure to get better access of the common bile duct and remove the stone. I did discuss with the patient his increased risk for an open procedure given his scar tissue from his prior surgery. I discussed in detail the risks of the laparoscopic cholecystectomy. In particular, I discussed the risk of bleeding, infection, hernias of the abdominal wall, injury to the intestines or liver, pancreatitis, dropped or retained stones in the abdomen, bile leak, and bile duct injury. The patient's questions have been answered. Current Visit: Yes Subjective Patient reports: Present: no new complaints, feels better, still having pain, pain is less, tolerating liquids well, afebrile Narrative: ERCP yesterday had poor quality images but no obvious stone in the common bile duct. Patient feels better today. Exam - Constitutional Vitals: Period Temp Pulse Resp BP Sys/Jackson Pulse Ox Last 24 Hr 97.8 F-98.9 F 53-77 14-20 114-155/61-81 96-100 General appearance: no acute distress, over weight - Head Head exam: Present: normal inspection, normocephalic - Eye Eye exam: Present: EOMI. Absent: scleral icterus Pupils: Present: KITTY - ENT ENT exam: Present: normal exam Mouth exam: Present: normal external inspection, normal voice - Neck Neck exam: Present: normal inspection, trachea midline - Respiratory Respiratory exam: Present: clear to auscultation bilaterally. Absent: accessory muscle use, chest wall tenderness - Cardiovascular Cardiovascular exam: Present: RRR. Absent: systolic murmur, tachycardia - GI/Abdominal GI/Abdominal exam: Present: normal bowel sounds, tenderness, soft. Absent: distended, guarding, Rubio's sign, rebound - Extremities Exam Extremities exam: Present: normal inspection, normal capillary refill - Back Exam Back exam: Present: normal inspection - Neurological Exam Neurological exam: Present: alert, oriented X3 Speech: Present: normal - Skin Skin exam: Present: normal color, warm Results - Labs CBC & BMP: 09/02/16 05:18 09/02/16 05:18
[2016-09-03] MEDS ORDERED: NEOSTIGMINE 10 MG/10 ML VIAL ONE (11:14)
[2016-09-03] MEDS ORDERED: ROCURONIUM 100 MG/10 ML VIAL IV ONE (11:14)
[2016-09-03] MEDS ORDERED: ONDANSETRON 4 MG/2 ML VIAL ONE ×2 (11:14→12:55)
[2016-09-03] MEDS ORDERED: PROPOFOL 200 MG/20 ML VIAL IV ONE (11:14)
[2016-09-03] MEDS ORDERED: LIDOCAINE 2% 5 ML VIAL ONE (11:14)
[2016-09-03] MEDS ORDERED: GLYCOPYRROLATE 0.4 MG/2 ML VIAL ONE (11:14)
--- NOTE | 2016-09-03 12:43 | Operative Note ---
Date of procedure: 09/03/16 Pre-op diagnosis: Acute cholecystitis Post-op diagnosis: same Procedure: Preoperative diagnosis Acute cholecystitis with abnormal LFTs Postoperative diagnosis Same Procedures performed Laparoscopic cholecystectomy with intraoperative cholangiogram Findings Acute and chronic cholecystitis was seen. The critical view of safety was obtained prior to placing clips on the cystic duct and cystic artery. Cholangiogram revealed no filling defects and good visualization of the cystic duct and biliary radicles in the liver Complications None apparent Specimen Gallbladder Anesthesia GETA Blood loss 5 mL Indications This patient was admitted with acute cholecystitis and elevated bilirubin of a dilated common bile duct. ERCP was performed preoperatively and there was difficulty cannulating the common duct and a little bit of uncertainty about definitive clearance of the duct. I recommended a laparoscopic cholecystectomy with cholangiogram to the patient. The risks, benefits, and alternatives of the operation were discussed with the patient in detail, and the expected outcomes were reviewed. In particular, the risk of bowel injury, liver injury, bile duct leak and bile duct injury, as well as pancreatitis and retained or drop stones were discussed in detail. All the patient's questions were answered. She like to proceed with the operation. Description of procedure The patient was taken to the operating room and transferred to the operating table in the supine position. Pressure points were padded and SCDs were placed to bilateral lower extremities. General endotracheal anesthesia was administered. The abdomen was prepped chlorhexidine and draped sterilely. Preoperative antibiotics were administered, a timeout was performed. The abdomen was entered in the right upper quadrant because of the patient's multiple midline abdominal surgeries. A direct cutdown was performed and the fascial layers were opened under direct visualization. A balloontipped 5 mm trocar was placed in the CO2 was insufflated into the abdomen until the pressure reached 15 mmHg. Diagnostic laparoscopy revealed no evidence of trocar injury. There were dense adhesions between the bowel and the omentum at the midline but there were no adhesions were the trochars needed to be placed. Under direct visualization, and after local anesthetic was administered, an 11 mm midepigastric trocar and an additional right upper quadrant subcostal trocar was placed. A paramedian umbilical trocar was also placed 5 mm. The camera was moved to the umbilical trocar and the patient was placed in reverse Trendelenburg and left side rolled down position. The gallbladder was grasped at the fundus and actually ruptured with grasping because of the tense distention of the gallbladder. The fundus was also grasped and infundibulum and the cystic plate peritoneum was dissected until the critical view of safety was obtained. No significant acute and chronic inflammation with a thick layer of fat covering the rind of the gallbladder. The cystic duct infundibulum junction was clipped with a 10 mm clip assembled wood products repairer and the cystic artery was clipped twice initially and once laterally. A cystic ductotomy was made and a cholangiogram catheter was inserted. Cholangiogram revealed no filling defects with brisk flow into the duodenum and normal cystic duct anatomy with visualization of the left and right main trunk of the hepatic duct. The cholangiogram catheter was removed and the cystic duct was clipped twice centrally and divided at the cystic ductotomy site. The cystic artery was divided between clips with scissors. Gallbladder was removed from the gallbladder fossa using hook electrocautery. The bile was suctioned out of the right upper quadrant with suction irrigation. The gallbladder was placed in a Endo Catch retrieval bag through the 11 mm trocar and removed through the trocar with a small amount of fascial extension due to the large gallstone. The gallbladder fossa was suction irrigated until the effluent was clear. The CO2 was released from the abdomen and the trochars were removed. The right subcostal access trocar site and the midepigastric trocar site were closed in 2 layers with 0 Vicryl sutures with no residual fascial defects. The skin incisions were closed with 4-0 Monocryl subcuticular suture and sterile skin glue. The patient was awakened from anesthesia and transferred to recovery. Postoperative plan Advance diet as tolerated Pain control Anesthesia: BRYAN, local Surgeon / Physician: Robinson Barrera Estimated blood loss: minimal Specimens: other (gallbladder) Condition: stable Disposition: PACU Results - Labs CBC & BMP: 09/02/16 05:18 09/02/16 05:18 Discharge Plan - Discharge Data Disposition: Disch To Home/Self Care Condition at Discharge: Stable Discharge Diet: advance to your usual diet Activity: no lifting Hygiene: may shower Weight Bearing at Discharge: weight bear as tolerated Driving: not for (24 hours and off of pain medications) Contact your physician if you experience:: fever over 101, Difficulty voiding, Redness or swelling, Nausea/Vomiting, Shortness of breath, Bleeding, pain uncontrolled by pain medications Wound / Dressing Care Instructions: It is okay to shower. Do not scrub the incision aggressively or submerge it under water. - Discharge Medications New HYDROcodone/ACETAMIN 7.5-325 [[place] 7.5-325] 1 tablet PO Q4H PRN #30 tablet PRN Reason: Pain Moderate (4-7) Continue metroNIDAZOLE TAB [Flagyl Cap/Tab] 500 mg PO DAILY Mercaptopurine 50 mg PO DAILY Insulin Glargine [Lantus] 40 unit SUBCUT DAILY Ciprofloxacin Tab [Cipro Tab] 250 mg PO DAILY - Follow Up or Referral Follow Up: Robinson Barrera MD [Physician] - 2 Weeks - Forms/Instructions
[2016-09-03] MEDS: HYDROmorphone 2 MG/1 ML VIAL IV PRN ×4 (12:48→13:24)
[2016-09-03] MEDS ORDERED: HYDROmorphone 2 MG/1 ML VIAL ONE (12:55)
--- NOTE | 2016-09-03 12:58 | Anesthesia Post-Op ---
Anesthesia Post OP - Post Ansesthetic Evaluation Patient seen in post op: Yes Resp: within normal limits CV: within normal limits Mental: within normal limits Temp: within normal limits Zazc-[id number]-Hcqmtdeew: within normal limits Nausea and Vomiting: within normal limits Pain: within normal limits
--- NOTE | 2016-09-03 12:59 | Fluoroscopy Report ---
Exam: FL cholangiogram in surgery Date: 09/03/2016 12:00 AM Comparison: ERCP 09/02/2016 Indication: Laparoscopic cholecystectomy Technique:[Fluoroscopy time of 24 seconds documented. 87 images were obtained after the injection of contrast into the bile ducts by Dr. Barrera.] Findings: The bile ducts appear less dilated with interval cholecystectomy. Probable air bubbles noted with no evidence of obstructing calculus. Contrast in the duodenum. Impression: Probable air bubbles with no obstructing calculus identified. PROCEDURE INTERPRETED AT [facility] DEPARTMENT OF RADIOLOGY Final Report Signed by: Dr. Britt Grier
[2016-09-03] MEDS ORDERED: ONDANSETRON 4 MG/2 ML VIAL IV PRN (13:06)
[2016-09-03] MEDS ORDERED: DESFLURANE 1 UNIT/15 MINUTE INH ONE (13:07)
[2016-09-03] MEDS ORDERED: MIDAZOLAM 2 MG/2 ML VIAL ONE (13:07)
[2016-09-03] MEDS ORDERED: fentaNYL 100 MCG/2 ML VIAL ONE (13:08)
[2016-09-03] MEDS ORDERED: ACETAMINOPHEN 1,000 MG/100 ML VIAL IV ONE (13:08)
[2016-09-03] MEDS ORDERED: LACTATED RINGERS 1,000 ML IV ONE (13:08)
--- NOTE | 2016-09-03 13:46 | Discharge Summary ---
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 He is tolerating this regimen for quite some time. Unfortunately he began to experience nausea and vomiting presented to the ER at which time he was identified with cholelithiasis and suspected cholecystitis with elevated bilirubin and leukocytosis. He was found also be volume depleted with acute kidney injury and underwent fluid resuscitation in the ICU with IV antibiotic support with Zosyn and Flagyl. Consultation with Dr. Arambula from gastroenterology was appreciated and the patient underwent ERCP after stabilization no filling destructive defects or obstructive findings with sphincterotomy performed and recommendations to proceed with cholecystectomy and cholangiogram intraoperatively. The patient underwent total endoscopic cholecystectomy with intraoperative cholangiogram with Dr. Barrera which progressed without complication. No findings in cholangiogram. Patient was discharged home in good condition after appropriate postoperative measures confirmed including adequate pain management, oral intake tolerance, activity tolerance, and voiding. Diagnosis - Discharge Diagnosis (1) Cholecystitis Status: Acute (2) Cholelithiasis Status: Acute (3) Sepsis Status: Acute (4) Pouchitis Status: Chronic Specialty Discharge - Follow Up or Referrals Follow up with: Robinson Barrera MD [Physician] - 09/20/16 2:00 pm Discharge Plan - Discharge Data Disposition: Disch To Home/Self Care Condition at Discharge: Stable Discharge Diet: advance to your usual diet Activity: no lifting Hygiene: may shower Driving: not for (24 hrs; avoid driving while taking pain medications) Contact your physician if you experience:: fever over 101, Difficulty voiding, Redness or swelling, Nausea/Vomiting, Shortness of breath, Bleeding, pain uncontrolled by pain medications Wound / Dressing Care Instructions: Do not scrub the incision aggressively or sumberge under water. - Discharge Medications New HYDROcodone/ACETAMIN 7.5-325 [[place] 7.5-325] 1 tablet PO Q4H PRN #30 tablet PRN Reason: Pain Moderate (4-7) Continue metroNIDAZOLE TAB [Flagyl Cap/Tab] 500 mg PO DAILY Mercaptopurine 50 mg PO DAILY Insulin Glargine [Lantus] 40 unit SUBCUT DAILY Ciprofloxacin Tab [Cipro Tab] 250 mg PO DAILY - Follow Up or Referral Follow Up: Robinson Barrera MD [Physician] - 09/20/16 2:00 pm - Forms/Instructions Instructions: Hydrocodone/Acetaminophen (By mouth), Laparoscopic Cholecystectomy (DC), Gastroenteritis (GEN) Exam - Constitutional Vitals: Period Temp Pulse Resp BP Sys/Jackson Pulse Ox Last 24 Hr 97.7 F-98.9 F 53-81 16-20 114-159/47-89 95-100 Discharge Results Labs on day of discharge: Labs from last 24 hours 09/03/16 09/03/16 09/02/16 11:09 07:51 20:36 POC Glucose 110 H 113 H 152 H 09/02/16 17:04 POC Glucose 130 H DS: Provider Date of admission: 08/31/16 17:34 Primary care physician: . No PCP Attending physician on admission: Robinson Barrera MD Consults: 08/31/16 18:19 Consult to Physician [CONS] Routine Comment: cholelithiasis, elevated bili, dilated CBD Consulting Provider: Farhat Arambula Consulting Provider Notified: Yes When should Consulting Provider be notified: In am Consult to Specialist Group: Gastroenterology Person Notified: REVONDA Date Notified: 09/01/16 Time Notified: 08:45 08/31/16 18:25 Consult to Pharmacy [CONS] Routine Reason for Pharmacy Consult: Adjust Meds Renal Funct 09/02/16 08:23 Consult to Anesthesiology [CONS] Routine Consulting Provider: Reason for Anesthesiology: Pre-op Clearance Discharging clinician: Paty Mcfarland PA-C
[2016-09-03 17:00] VITALS: BP 153/84
--- NOTE | 2016-09-06 10:24 | Pathology Report from [facility] ---
ACCESSION # : [id number] PATIENT NAME : Emily Olivarez ORDERING DR : Robinson Barrera MD CLINICAL HX: Acute cholecystitis and cholelithaisis POST-OP DX: Same SPECIMEN INFO: Gallbladder GROSS DESCRIPTION: The specimen is received in formalin labeled with the patient 's name and consists of an intact gallbladder measuring 8.5 x 4.0 cm. The serosa is smooth and fatty. The wall averages 0.3 cm in thickness. The mucosal surface is granular and red-larose. The lumen contains hyperemic yellow- brown bile with a single black stone noted measuring 2.3 x 1.8 cm. Food Service Specialist sections submitted in one cassette. DIAGNOSIS FOR EMILY OLIVAREZ: GALLBLADDER: Acute and chronic cholecystitis. Cholelithiasis. No evidence of malignancy. SERVICE DATE: 09/04/2016 REPORT DATE: 09/06/2016 PATHOLOGIST: Rashaad Cole III, M.D. MTDD
== END 2016-09-03 18:45 | disposition home or self-care (01) | DRG 854 ==
LOC: N.ED 14:19 → N.EDINP 17:34 → N.ICU 18:11 → N.5E 09-01 19:02
PROVIDERS: ADMIT Surgery; ATTEND Surgery
PROC: LAPCHOL (2016-09-03 11:14)